=== PATIENT | female | born 1935 | race Caucasian/White ===

== ENCOUNTER 2017-09-01 02:00 | Outpatient (CLI) | payer MEDICARE, OTHER | END 2017-09-01 02:01 | disposition short-term general hospital (02) | LOC: EMS 02:00 | PROVIDERS: ATTEND Surgery | DX: S49.92XA Unspecified injury of left shoulder and upper arm, initial encounter (principal); R20.0 Anesthesia of skin; W19.XXXA Unspecified fall, initial encounter; Y92.009 Unspecified place in unspecified non-institutional (private) residence as the place of occurrence of the external cause | CPT/HCPCS: A0425; A0429; A0888 ==

== ENCOUNTER 2017-09-11 14:23 | Outpatient (CLI) | payer MEDICARE, OTHER ==
--- NOTE | 2017-09-11 16:11 | XRAY Report ---
EXAM: RIGHT HIP AND PELVIS RADIOGRAPHY EXAM DATE: 09/11/2017 02:42 PM. HISTORY: Ground-level fall a week ago, hip still hurts. Joint pain. COMPARISONS: None. TECHNIQUE: 1 view of the pelvis and 1 view of the hip. FINDINGS: Bones: No acute fracture or bony lesions. Mild degenerative osteophyte formation. Joints: Mild joint space narrowing of the right hip joint. No dislocation. Degenerative changes of th e left hip joint and lower lumbar spine. Soft Tissues: Normal. No soft tissue swelling. IMPRESSION: 1. No acute osseous abnormalities. Normal alignment. 2. 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 [facility] Referring Provider Line: [phone] SITE ID: [id number]
== END 2017-09-11 14:24 | disposition home or self-care (01) ==
LOC: DI 14:23
PROVIDERS: ATTEND Family Medicine
DX: M16.11 Unilateral primary osteoarthritis, right hip (principal)